=== PATIENT | female | born 1955 | race Caucasian/White ===

== ENCOUNTER 2022-05-19 18:29 | Emergency (ER) | payer MEDICARE, BC ==
[2022-05-19] MEDS ORDERED: Orphenadrine 100 MG Tab.ER PO ONE (18:55)
[2022-05-19] MEDS ORDERED: Ketorolac 60 MG/2 ML SDV IM ONE (18:55)
[2022-05-19] MEDS ORDERED: Ondansetron 4 MG Tab.DIS PO ONE (19:39)
== END 2022-05-19 20:15 | disposition home or self-care (01) ==
LOC: JD.ED 18:29
DX: M54.41 Lumbago with sciatica, right side (principal); Z88.5 Allergy status to narcotic agent
CPT/HCPCS: 72100; 96372; 99283; A9270; J1885